=== PATIENT | male | born 1990 | race Caucasian/White ===

== ENCOUNTER 2023-09-27 16:25 | Emergency (ER) | payer OTHER, SELFPAY ==
[2023-09-27 16:28] VITALS: BP 157/106; PULSE 106; RESP 20; TEMP 36.2; O2SAT 100; BMI 32.4
[2023-09-27 17:03] VITALS: BP 127/95; PULSE 86; RESP 20; O2SAT 99
--- NOTE | 2023-09-27 17:08 | EKG12_ITS ---
Test Reason : CHEST PAIN Blood Pressure : / mmHG Vent. Rate : 097 BPM Atrial Rate : 097 BPM P-R Int : 148 ms QRS Dur : 090 ms QT Int : 356 ms P-R-T Axes : 056 049 004 degrees QTc Int : 452 ms Normal sinus rhythm Normal ECG Confirmed by Jaylen Canchola ([id number]), assignment editor MICHAEL ROCHA ([id number]) on 09/28/2023 9:42:50 AM Referred By: Confirmed By:Jaylen Canchola
--- NOTE | 2023-09-27 17:09 | ED.VIS.CHEST ---
HPI History of Present Illness Chief Complaint: Chest Pain Informant: patient and spouse/S.O. Onset/Context/Timing Onset: Today Activity at onset: sudden Timing: Continuous Location: Right Chest and Left Chest Current Severity: Mild Maximum Severity: Moderate Worsened By: Breathing Relieved By: - (Feels much better after he took an anxiety medication.) Associated Symptoms: Negative for Nausea, Vomiting, Diaphoresis, Dyspnea, Cough, Fever, Lightheadedness, Acid Reflux or Palpitations Narrative Narrative: 33-year-old male possible history of prior panic attack. Currently on no medications. No cardiac history. No history of DVT or PE risk factors. He was driving home today after picking up his kids around 420s he felt weird and tingling in his chest. Denies any nausea shortness of breath. No diaphoresis. Similar episode he was told he had a panic attack. He has never had a heart cath or stress test. He denies any leg pain or swelling. No recent travel, surgery or immobilization. No history of hemoptysis. Prior Similar Symptoms: Yes Recent Illness/Hospitalization: No CVD Risk Factors: Negative for Hypertension, Diabetes or Hypercholesterolemia PE Risk Factors: Negative for Recent Travel/Surgery, Recent Immobilization, Prior DVT or PE, Cancer or OCP + Smoking + >/=35 TAD Risk Factors: Negative for Marfan's Syndrome PFSH PFSH Medical History no medical history no medical history Home Medications NK 08/04/20 [History Last Taken Unknown] Allergy/AdvReac Type Severity Reaction Status Date / Time No Known Allergies Allergy Verified 09/27/23 16:26 Social History Smoking Status: Never smoker alcohol intake: never ROS ROS ED ROS Narrative Denies recent illness. Review of Systems ROS Unobtainable: Denies due to encephalopathy Constitutional Constitutional ED: Denies chills or fever(s) Eyes Eyes: Denies none ENT ENT ED: Denies ear pain Cardiovascular Cardiovascular: Reports as per HPI and chest pain; Denies palpitations or racing heartbeat Respiratory/Chest Respiratory/Chest: Denies cough, dyspnea or dyspnea on exertion Gastrointestinal Gastrointestinal: Denies abdominal pain Genitourinary Genitourinary ED: Denies dysuria or hematuria Musculoskeletal Musculoskeletal: Denies arthralgias, back pain, myalgias or neck pain Integumentary Denies abscess or Abrasions Neurologic Neurologic: Denies headache(s) Psychiatric Psychiatric: Denies anxiety or depression Endocrine Endocrinology: Denies cold intolerance Hematologic/Lymphatic Hematologic/Lymphatic: Denies easy bleeding, easy bruising or lymphadenopathy Allergic/Immunologic Allergic/Immunologic ED: Denies mouth swelling, tongue swelling or urticaria EXAM Physical Exam Narrative Exam Narrative: Well-appearing 33-year-old male vital signs stable with current blood pressure 08/20/1994. Pulse ox 99% on room air no signs of POTS. H EENT exam unremarkable. Neck nontender no JVD. Lungs clear to auscultation bilaterally. Heart regular rhythm no murmur. Chest wall and ribs nontender. Abdomen soft nontender. Nondistended normal bowel sounds no peritoneal signs. Moving all 4 extremities. 5 out of 5 charge auditor strength. Equal symmetrical radial pulses. Strong. Calves nontender without edema or cords. Normal strength. Back nontender. Neurologically is awake and alert no focal motor deficits. NIH is 0. Const Vital Signs: 09/27/23 16:28 09/27/23 17:03 09/27/23 17:21 Temperature 97.2 F L Temperature Source Temporal Pulse Rate 106 H 86 87 Respiratory Rate 20 H 20 H 13 Respiratory Effort Blood Pressure 157/106 H 127/95 H 129/87 H Blood Pressure Mean 123 105 101 Pulse Ox 100 99 100 Oxygen Delivery Method Room Air Room Air 09/27/23 17:37 09/27/23 17:38 09/27/23 18:34 Temperature Temperature Source Pulse Rate 93 Respiratory Rate 15 Respiratory Effort Normal Non-Labored Blood Pressure 132/91 H Blood Pressure Mean 104 Pulse Ox 96 Oxygen Delivery Method Room Air Room Air Positive well nourished and well developed; Negative for obese, cachectic, contractures or unkempt General Appearance ED: well developed and NAD; Negative for unkempt, cachectic, contractures or pallor Nutritional Appearance: Negative for cachectic or obese HEENT Reports moist mucous membranes; Denies dry mucous membranes normocephalic and atraumatic; Negative for trauma or tenderness Mouth ED: No dry mucous membranes Mouth: No dry mucous membranes Eyes PERRL and EOMs intact bilaterally General Eye ED: Negative for pale conjunctiva, scleral icterus or other Neck no lymphadenopathy, supple and no JVD General: Negative for tenderness Chest Wall inspection of chest normal and palpation of chest normal Chest: Negative for tenderness Resp normal respiratory effort and clear to auscultation bilaterally Effort and Inspection: Negative for respiratory distress Auscultation: Negative for rales, rhonchi, wheezes or diminished lung sounds Cardio regular rate, regular rhythm, S1 normal heart sound, S2 normal heart sound and no murmurs Rate: Negative for bradycardia or tachycardic Rhythm: Negative for abnormal rhythm Peripheral Pulses: pulses 2+ throughout GI normal to inspection, nondistended, normoactive bowel sounds, soft to palpation, non-tender and non-distended Back/Spine no CVA tenderness and no thoracic nor lumbar tenderness General Back: Negative for CVA tenderness Cervical Spine: Negative for cervical spine tenderness Extremity normal to inspection General Extremety ED: Negative for edema, pulses abnormal or tenderness General Extremity: Negative for edema or pulses abnormal Neuro oriented x3, CN's II-XII intact bilaterally and no sensory deficits noted Sensorium / Orientation: awake, alert, oriented to person, oriented to place and oriented to time; Negative for confused, lethargic or stuporous Motor Exam: strength 5/5 throughout Psych mental status grossly normal Appearance: Negative for unkempt Attitude: No agitated Mood & Affect: Negative for depressed, anxious or tearful Skin no rashes or lesions noted and no wounds General Skin Exam: Negative for jaundice or pallor Rashes: No rashes noted Trauma: Negative for abrasion, laceration or puncture Heart Score History: Slightly/Non-Suspicious ECG: Normal Age: </= 45 years Risk Factors: No Risk Factors Troponin: </= Normal Limit Score: 0 MDM MDM MDM Narrative Medical decision making narrative: There evaluate atypical chest pain. Undergo cardiac workup. He has no risk factors for a PE. Or DVT. Does not sound like a dissection. Repeat exam at 6:45 PM patient is doing well. We went over all his test results. Repeat exam is normal and unchanged. He is comfortable as is his significant other from the be discharged home with outpatient follow-up with primary care physician. I do not think he needs any further testing. History & Record Review Discussion w/independent historian: Patient Lab Data Attestation: I reviewed the patient's lab results. Lab results narrative: CBC shows a white count 11. H&H is 16 and 45. Platelets 280. D-dimer is negative at less than 0.27. Electrolytes show a potassium of 3.3. Gap 6. BUN/creatinine 22/1. Glucose 96. Troponin 4. Chest x-ray normal. Normal cardiac silhouette. Labs: Laboratory Results - last 24 hr 09/27/23 16:40 WBC 11.4 H RBC 5.14 Hgb 16.1 Hct 45.4 MCV 88.3 MCH 31.3 MCHC 35.5 RDW Std Deviation 38.9 RDW Coeff of Lon 12.1 Plt Count 280 MPV 9.0 Immature Gran % (Auto) 0.200 Neut % (Auto) 49.1 Lymph % (Auto) 39.5 Davison % (Auto) 8.2 Eos % (Auto) 2.3 Baso % (Auto) 0.7 Absolute Neuts (auto) 5.6 Absolute Lymphs (auto) 4.50 Nucleated RBC % 0 Atypical Lymphocytes 1+ Platelet Estimate ADEQUATE RBC Morphology N CHROM Anisocytosis RARE D-Dimer Quant (PE/DVT) < 0.27 L Sodium 137 Potassium 3.3 L Chloride 107 Carbon Dioxide 24.0 Anion Gap 6 BUN 22 H Creatinine 1.08 Estim Creat Clear Calc 114.54 Est GFR (MDRD) Af Amer 100 Est GFR (MDRD) Non-Af 83 BUN/Creatinine Ratio 20.4 H Glucose 96 Calcium 9.1 Troponin I High Sens 4 Radiography Chest X-Ray - ED: 1 View, Read by ED Physician, Read by Radiologist, Heart, Lungs, Mediastinum, Bony Structures and No Acute Disease Diagnostic Testing: Clinical Impression(s) from Imaging Studies Chest X-Ray 09/27/23 17:25 IMPRESSION: Normal x-ray examination of the chest. Electronically Signed: Murtaza Bucio MD at 17:55 EST Reading Location ID and State: [facility] / [place] Tel , Service support , Chest x-ray, portable, single view interpreted by myself and radiologist shows no acute abnormality. Normal cardiac silhouette. Normal mediastinum and aortic knob. Normal lung elam. Rhythm Strip Rhythm Strip: Sinus Rhythm Rate: 97 Ectopy: None EKG Initial EKG: Attestation: I personally reviewed and interpreted this EKG as follows: Interpretation: Sinus Rhythm and No Acute Injury Pattern Comments: Normal sinus rhythm rate 97 no acute signs of NM or ischemia. Discharge Plan Triage Chief Complaint: Chest Pain ED Provider: Jc Mckeon Dx/Rx/DC Orders Clinical Impression: Chest pain Instructions: ED Chest Pain, Uncertain Cause Prescriptions: No Action NK Primary Care Provider: Daryl Montero Referrals: Daryl Montero, [id number] [Primary Care Provider] - 3-5 Days Activity Restrictions/Additional Instructions: Tests and chest x-ray and EKG were normal. Follow-up with your primary care provider. Motrin and Tylenol for pain. Long-term stop smoking. Disposition Disposition: Home, Self Care
[2023-09-27 17:21] VITALS: BP 129/87; PULSE 87; RESP 13; O2SAT 100
--- NOTE | 2023-09-27 17:25 | RAD_ITS ---
STUDY: X-RAY CHEST REASON FOR EXAM: Male, 33 years old. chest pain TECHNIQUE: AP portable COMPARISON: None. FINDINGS: The lungs are clear and expanded. There is no demonstrated pleural abnormality. Normal size heart. Normal mediastinum and grace. Normal visualized pulmonary arteries. Normal visualized aortic arch and descending thoracic aorta. Normal visualized thoracic spine. Normal visualized ribs, clavicles, and shoulders. There is no demonstrated abnormality of the visualized soft tissue structures of the upper abdomen. RAD/Chest 1 View (Portable) IMPRESSION: Normal x-ray examination of the chest. Electronically Signed: Murtaza Bucio MD at 17:55 EST ,
[2023-09-27 17:37] LABS: Absolute Neutrophil Count 5.6 X10^3/uL (2.0-7.7); Basophil# 0.08 X10^3/uL; Basophil% 0.7 % (0-1); Eosinophil# 0.26 X10^3/uL; Eosinophils% 2.3 % (0-5); Hematocrit 45.4 % (40-54); Hemoglobin 16.1 g/dL (13.0-16.5); Lymphocyte % 39.5 % (19-41); Mean Corp Hgb Conc 35.5 g/dL (32-36); Mean Corpuscular Hgb 31.3 pg (27.0-32.0); Mean Corpuscular Volume 88.3 fL (80-94); Monocyte# 0.94 X10^3/uL; Monocyte% 8.2 % (0-10); NRBC Flagged by Analyzer 0 % (0-5); Neutrophil % 49.1 % (47-70); POSITIVE MORPHOLOGY YES; Platelet Count 280 K/mm3 (150-450); RBC Distribution Width CV 12.1 % (11.6-14.6); RBC Distribution Width SD 38.9 fl (35.1-43.9); Red Blood Count 5.14 M/mm3 (4.6-6.2); White Blood Count 11.4 K/mm3 (4.4-11.0)
[2023-09-27 17:38] LABS: Anion Gap 6 (5-15); BUN 22 mg/dL (7-18); BUN/Creat Ratio 20.4 RATIO (10-20); Calcium,Total 9.1 mg/dL (8.5-10.1); Chloride 107 mmol/L (98-107); Creatinine, Serum 1.08 mg/dL (0.70-1.30); EST Glomerular Filtration Rate 83 mL/min (>60); Est Glom Filt Rate - Afr Amer 100 mL/min (>60); Estimated Creatinine Clearance 114.54 ml/min; Glucose 96 mg/dL (74-106); Potassium 3.3 mmol/L (3.5-5.1); Sodium Level 137 mmol/L (136-145); Troponin-I HS 4 pg/mL (3.0-78.0)
--- NOTE | 2023-09-27 17:46 | ED.RN ---
NO OLD EKG
[2023-09-27 17:47] LABS: D-Dimer Quantitative (DVT/PE) < 0.27 FEU/ug/m (0.27-0.49)
[2023-09-27 17:49] LABS: Differential Indicated SCAN CRITERIA MET
[2023-09-27 18:10] LABS: Anisocytosis RARE; Atypical Lymphocyte 1+ %; Platelet Estimate ADEQUATE (ADEQ); Red Cell Morphology N CHROM NORMAL (NORM C&C)
[2023-09-27 18:34] VITALS: BP 132/91; PULSE 93; RESP 15; O2SAT 96
[2023-09-27 18:52] VITALS: BP 119/83; PULSE 83; RESP 13; TEMP 35.7; O2SAT 97
== END 2023-09-27 19:03 | disposition home or self-care (01) ==
PROVIDERS: Emergency Provider Emergency Medicine; PCP Nurse Practitioner Family; Visit Provider Emergency Medicine
DX: R07.89 Other chest pain (principal); Z87.891 Personal history of nicotine dependence
CPT/HCPCS: 71045; 80048; 84484; 85025; 85379; 93005; 99284